=== PATIENT | male | born 1965 | race Caucasian/White ===

== ENCOUNTER 2024-03-02 15:21 | Emergency (ER) | payer OTHER, SELFPAY ==
--- NOTE | ~2024-03-02 | XR_ITS ---
EXAMINATION: XR ELBOW, RIGHT CLINICAL INFORMATION: fall, pain. COMPARISON: None available. TECHNIQUE: AP, lateral, and oblique views of the right elbow. FINDINGS: No fracture, dislocation, or suspicious bone lesion. Normal alignment of the elbow. Joint spaces preserved. Epicondyles appear normal. Radial head is intact. Olecranon is intact. There is no joint effusion. There is diffuse soft tissue swelling overlying the olecranon, likely secondary to trauma. No radiopaque foreign bodies. XR/XR elbow RT 2V IMPRESSION: 1. No fracture, joint effusion, or dislocation. 2. Soft tissue swelling overlying the olecranon, likely result of direct trauma. Electronically signed by: Myron Arreguin MD 03/02/2024 04:20 PM [facility]
--- NOTE | ~2024-03-02 | CT_ITS ---
EXAMINATION: CT HEAD WITHOUT CONTRAST CLINICAL INFORMATION: Fall, loss of consciousness TECHNIQUE: Contiguous axial imaging was performed from the skull base to vertex without intravenous administration of contrast. All CT exams at this location are performed using dose optimization techniques as appropriate to a performed exam including at least one of the following: * Automated exposure control * Adjustment of the mA and/or kV according to patient size (this includes techniques or standardized protocols for targeted exams where dose is matched to indication / reason for exam; i/e/ extremities or head) * Use of iterative reconstructive technique DLP: 654 mGy-cm COMPARISON: None. FINDINGS: There is no evidence of acute intracranial hemorrhage, acute large vessel infarct, midline shift or mass effect. The paul-white differentiation is preserved. The ventricles and sulci are within normal limits in size and configuration. There is no evidence of hydrocephalus. There are no extraaxial collections. Osseous structures are intact. Paranasal sinuses and mastoid air cells are well aerated. CT/CT head/brain wo IV con IMPRESSION: Unremarkable non-contrast CT of the brain. Electronically signed by: Kyle Rodgers MD 03/02/2024 07:19 PM EST
--- NOTE | ~2024-03-02 | XR_ITS ---
EXAMINATION: XR CERVICAL SPINE CLINICAL INFORMATION: Fall, neck pain COMPARISON: None available. TECHNIQUE: 3 views of the cervical spine were obtained. FINDINGS: There are no prevertebral soft tissue abnormalities demonstrated. No compression fractures or subluxations are identified. Alignment is maintained at the atlanto-axial articulation. Degenerative changes with disc space narrowing and osteophyte formation is seen in the C3-C6. Posterior facet joint arthropathy is seen at C5/6. The prevertebral soft tissues are normal. XR/XR cervical spine 3V IMPRESSION: No acute process. Degenerative changes as described above. Electronically signed by: Kyle Rodgers MD 03/02/2024 07:16 PM EST
[2024-03-02 15:55] VITALS: BP 123/76; PULSE 80; RESP 18; TEMP 36.5; O2SAT 95; BMI 21.8
[2024-03-02 16:00] VITALS: BP 128/82; PULSE 87; RESP 18; TEMP 36.8; O2SAT 99
--- NOTE | 2024-03-02 17:21 | ED_ITS ---
HPI - Fall General Chief Complaint: Fall Stated Complaint: fell 02/28 right elbow inj Time Seen by Provider: 03/02/24 16:51 Source: patient Mode of arrival: ambulatory Limitations: no limitations History of Present Illness ED Provider: Dr. Neda Torres HPI Narrative: Patient comes to the emergency room complaining of right elbow pain. Patient states that 2 days ago he slipped on ice and landed on his elbow. Patient stated that also he believes that he lost consciousness. Patient states that he takes Coumadin. Patient denies any headache or neck pain at this time. Patient states that what hurts him the most is the right elbow. According to the patient, he went to urgent care today, they asked him to come to the emergency room for further evaluation. Related Data Previous Rx's ?Medication ?Instructions ?Recorded cephalexin 500 mg capsule 500 mg PO BID #14 caps 03/02/24 doxycycline hyclate 100 mg capsule 100 mg PO BID #14 caps 03/02/24 tramadol 50 mg tablet 50 mg PO BID PRN pain #7 tabs 03/02/24 Allergies Allergy/AdvReac Type Severity Reaction Status Date / Time fish derived [fish] AdvReac Redness of Verified 03/02/24 15:57 Skin ibuprofen [From Motrin] AdvReac Rash Verified 03/02/24 15:57 Review of Systems 2 Review of Systems: Constitutional : No Weight loss, No Fever, No Chills, No Night Sweats, No Fatigue, No Malaise ENT/Mouth : No Hearing loss, No Ear Pain, No Nasal Congestion, No Sinus Pain, No Hoarseness, No sore throat, No Rhinorrhea, No Swallowing Difficulty Eyes: No Eye Pain, No Swelling, No Redness, No Foreign Body, No Discharge, No Vision Changes Cardiovascular : No Chest Pain, No SOB, No Dyspnea on Exertion, No Orthopnea, No Edema, No Palpitations Respiratory : No Cough, No Sputum, No Wheezing, No Smoke Exposure, No Dyspnea Gastrointestinal : No Nausea, No Vomiting, No Diarrhea, No Constipation, No abdominal Pain, No Hematochezia, No Melena Genitourinary : no irregular bleeding, No Dysuria, No Urinary Frequency, No Hematuria, No Urinary Incontinence, No Urgency, No Flank Pain, No Urinary Flow Changes, No Hesitancy Musculoskeletal : Complaining of right elbow pain, No Myalgias, No Joint Swelling Skin : No Skin Lesions, No rash Neuro : No Weakness, No Numbness, No Paresthesias, complaining loss of consciousness after off,No Dizziness, No Headache Psych : No Anxiety/Panic, No Depression, No SI/HI/AH/VH, No Social Issues, Heme/Lymph: No Bruising, No Bleeding,No Lymphadenopathy Endocrine : No Polyuria, No Polydipsia, No Temperature Intolerance [facility] Past Medical History Medical History (Updated 03/02/24 @ 23:31 by Neda Torres MD) Pulmonary emboli Social History Social History Unable to assess alcohol history related to: Unknown Use of substances other than those prescribed or required for medical reasons: Unknown Advance Directives: No Advance Directives Information Provided: Yes Physical Exam 2 Vital Signs: Vital Signs: Last Vital Signs Temp 98.2 F 03/02/24 16:00 Pulse 64 03/02/24 20:00 Resp 18 03/02/24 20:00 BP 132/89 03/02/24 20:00 Pulse Ox 99 03/02/24 16:00 O2 Del Method Room Air 03/02/24 16:00 BMI result Body Mass Index 21.8 Const: Other: Appearance: Alert. Oriented X3. seems uncomfortable Eyes: Pupils equal, round and reactive to light. ENT: Pharynx normal. Neck: Normal inspection. Neck supple. No lymph nodes noted. No crepitus CVS: Normal heart rate and rhythm. Pulses normal. Normal S1 and S2 Respiratory: No respiratory distress. Breath sounds normal. No Wheezing. No rales Abdomen: Soft and nontender. No rigidity. No distention. Skin: Skin warm and dry. Normal skin color. Normal skin turgor. Extremities: No lower extremity edema. No Lacerations. No Rash. Elbow looks swollen, erythematous, warm to touch, very painful Neuro: Oriented X 3. No motor deficit. No sensory deficit. Moving all extremities. No slurred speech. CN 2 through 12 grossly intact Psych: calm, cooperative, normal affect Medications Administered Discontinued Medications Generic Name Dose Route Start Last Admin Trade Name Freq PRN Reason Stop Dose Admin Vancomycin HCl 2,000 mg in 500 mls @ 250 mls/hr 03/02/24 20:14 03/02/24 23:11 Vancomycin/Ns IV 03/02/24 22:13 Infused ONCE ONE Infusion Piperacillin Sod/Tazobactam 50 mls @ 100 mls/hr 12/26/24 20:14 03/02/24 21:06 Sod 3.375 gm/ Sodium Chloride IV 03/02/24 20:43 Infused ONCE ONE Infusion Lidocaine HCl 20 ml 03/02/24 17:07 03/02/24 18:45 Lidocaine Hcl 2 % 20 Ml Vial INFILTRATI 03/02/24 17:08 20 ml ONCE ONE Administration Morphine Sulfate 4 mg 03/02/24 17:09 03/02/24 18:05 Morphine Sulfate 4 Mg/Ml Cartridge IVPUSH 03/02/24 17:10 4 mg ONCE ONE Administration Protocol Morphine Sulfate 2 mg 03/02/24 18:48 03/02/24 19:28 Morphine Sulfate 2 Mg/Ml Cartridge IVPUSH 03/02/24 18:49 2 mg ONCE ONE Administration Protocol Procedures Joint Aspiration/Injection Joint Asp./Inject. 1: Time Out Performed: Yes Side of body: right Joint Aspirated: elbow Ultrasound Guidance: No Skin Prep: Povidone-Iodine1% Local Anesthetic: lidocaine 2% Amount of anesthesia used (mL): 7 Needle Size Used: 18G Fluid Obtained: clear ( yellow) Patient Tolerated Procedure: well and no complications Complications: none Medical Decision Making Medical Decision Making MDM Narrative: my interpretation of x-ray of the right elbow. No bony fracture. Per Radiology report, there is no effusion. However, patient's seems to have some bogginess. Patient states that earlier today when he went to urgent Care, he was draining pus from the eschar side on the right elbow. Discussed with the patient that there is a fair probability that there is fluid in the elbow joint and is starting to become infected. The skin is definitely infected. Seems to be streaking upwards. Patient agreeable to arthrocentesis. Arthrocentesis was performed, 16 mL of clear yellow fluid was obtained - labs of the synovial fluid: white blood cell count 2000 - while we received the lab results, patient prophylactically received vancomycin and Zosyn. - Patient received 2 doses of morphine. I discussed the patient with Dr. Tinajero from the medicine team. Patient is able to flex and extend his arm, hurts but he is able to do so. After the IV antibiotics, patient states that he His arm was still hurting but he does not want to be admitted. Patient was sent home with a prescription for p.o. antibiotics and pain medication. Differential Diagnosis Differential Diagnoses: The differential diagnosis associated with the presentation includes ( Septic joint, traumatic effusion, hemarthrosis) Admission/Observation Consideration of admission/observation: Escalation of care including admission/observation considered ( admission was considered and of with) Lab Data MDM Lab Attestation statement: I reviewed the patient's lab results. 03/02/24 17:35 03/02/24 17:35 Labs: Lab Results 03/02/24 03/02/24 Range/Units 17:35 18:45 WBC 12.3 H (4.8-10.8) X10*3/uL RBC 5.07 (4.60-5.80) X10*6/uL Hgb 14.7 (14.0-18.0) g/dl Hct 44.6 (42.0-52.0) % MCV 88.0 (80.0-98.0) fL MCH 29.0 (27.0-33.0) pg MCHC 33.0 (31.0-36.0) g/dl RDW 14.0 (11.0-16.0) % Plt Count 283 (160-400) X10*3/uL MPV 9.2 L (9.4-12.4) fL Immature Gran % (Auto) 0.6 H (0.0-0.4) % Neut % (Auto) 66.3 (45-73) % Lymph % (Auto) 22.5 (20-40) % [place] % (Auto) 8.4 (2-11) % Eos % (Auto) 1.7 (0-4) % Baso % (Auto) 0.5 (0-2) % Lymph # (Auto) 2.8 (1.2-4.9) X10*3/uL [place] # (Auto) 1.0 (0.1-1.2) X10*3/uL Eos # (Auto) 0.2 (0.0-0.4) X10*3/uL Baso # (Auto) 0.1 (0.0-0.2) X10*3/uL Abs Immat Gran (auto) 0.07 H (0.00-0.03) X10*3/uL Absolute Neuts (auto) 8.2 (2.0-8.3) x10*3/uL Absolute Nucleated RBC 0.000 (0.0-0.012) X10*3/uL Nucleated RBC % (auto) 0.0 (0.0-0.2) /100WBC ESR 16 H (0-15) MM/HR Sodium 137 (135-145) mmol/L Potassium 4.2 (3.3-5.1) mmol/L Chloride 105 (96-108) mmol/L Carbon Dioxide 28 (22-29) mmol/L Anion Gap 8 L (12-20) BUN 9 (9-16) mg/dL Creatinine 0.77 (0.5-1.4) mg/dL Estim Creat Clear Calc 116.5 Estimated GFR > 60 Random Glucose 82 (60-115) mg/dL Calcium 9.3 (8.4-10.2) mg/dL Total Bilirubin 0.4 (0.0-1.0) mg/dL Direct Bilirubin 0.1 (0.0-0.5) mg/dL AST 42 H (5-37) U/L ALT 18 (0-40) U/L Alkaline Phosphatase 87 (39-117) U/L C-Reactive Protein 6.90 H (< or = 0.50) mg/dL Total Protein 7.5 (6.5-8.0) g/dL Albumin 4.0 (3.5-5.0) g/dL Synovial Source right elbow Synovial WBC 2.055 X10*3/uL Synovial RBC < 0.002 X10*6/uL Synovial Neutrophils 90 % Synovial Lymphocytes 6 % Synovial Monocytes 4 % Independent Interpretation I performed an independent interpretation of an: CT Scan Radiology Impression Discussion of test interpretation with radiology: I have reviewed the radiologist's reading. Radiologist Impression: FINDINGS: There is no evidence of acute intracranial hemorrhage, acute large vessel infarct, midline shift or mass effect. The paul-white differentiation is preserved. The ventricles and sulci are within normal limits in size and configuration. There is no evidence of hydrocephalus. There are no extraaxial collections. Osseous structures are intact. Paranasal sinuses and mastoid air cells are well aerated. CT/CT head/brain wo IV con IMPRESSION: Critical Care Time Critical Care Time Critical Care Time: Yes Total Critical Care Time: 60 Attestation: I have personally provided critical care time. Time includes review of lab data, radiology results, discussion with consultants, and monitoring for potential decompensation. Intervention performed as documented. Discharge Plan Discharge Clinical Impression: Cellulitis, Joint effusion Patient Disposition: Home, Self-Care Instructions: Cellulitis (ED), Joint Aspiration (DC) Additional Instructions: Please follow-up with your primary care physician tomorrow. If you have any worsening or new symptoms, please return to the emergency room or call 911 Prescriptions: New cephalexin 500 mg capsule 500 mg PO BID Qty: 14 0RF doxycycline hyclate 100 mg capsule 100 mg PO BID Qty: 14 0RF tramadol 50 mg tablet 50 mg PO BID PRN (Reason: pain) Qty: 7 0RF Print Language: Sami
[2024-03-02 17:41] LABS: MANUAL DIFF FLAG NO
[2024-03-02 17:55] LABS: Basophils Absolute Auto 0.1 X10*3/uL (0.0-0.2); Basophils Percent Auto 0.5 % (0-2); Eosinophils Absolute Auto 0.2 X10*3/uL (0.0-0.4); Eosinophils Percent Auto 1.7 % (0-4); Hematocrit 44.6 % (42.0-52.0); Hemoglobin 14.7 g/dl (14.0-18.0); Imm Gran Abs Auto 0.07 X10*3/uL (0.00-0.03); Imm Gran Pct Auto 0.6 % (0.0-0.4); Lymphocytes Absolute Auto 2.8 X10*3/uL (1.2-4.9); Lymphocytes Percent Auto 22.5 % (20-40); Mean Platelet Volume 9.2 fL (9.4-12.4); Monocytes Percent Auto 8.4 % (2-11); Neutrophils Absolute Auto 8.2 x10*3/uL (2.0-8.3); Neutrophils Percent Auto 66.3 % (45-73); Platelet Count 283 X10*3/uL (160-400); Red Blood Count 5.07 X10*6/uL (4.60-5.80); White Blood Count 12.3 X10*3/uL (4.8-10.8)
[2024-03-02 17:56] LABS: Alanine Aminotransferase 18 U/L (0-40); Alkaline Phosphatase 87 U/L (39-117); Anion Gap 8 (12-20); Aspartate Amino Transferase 42 U/L (5-37); Bilirubin Direct 0.1 mg/dL (0.0-0.5); Bilirubin Total 0.4 mg/dL (0.0-1.0); Blood Urea Nitrogen 9 mg/dL (9-16); Calcium 9.3 mg/dL (8.4-10.2); Carbon Dioxide 28 mmol/L (22-29); Chloride 105 mmol/L (96-108); Creatinine Clr Calc Pharmacy 116.5; Estimated Glomerular Filt Rate > 60; Glucose Random 82 mg/dL (60-115); Potassium 4.2 mmol/L (3.3-5.1); Sodium 137 mmol/L (135-145); Total Protein 7.5 g/dL (6.5-8.0)
[2024-03-02] MEDS: Morphine Sulfate 4 MG/ML CARTRIDGE IVPUSH (18:05)
[2024-03-02] MEDS: Lidocaine HCl 2 % 20 ML VIAL INFILTRATI (18:45)
[2024-03-02 18:54] LABS: Erythrocyte Sedimentation Rate 16 MM/HR (0-15)
[2024-03-02 19:24] LABS: MN% 6.3 %; PMN% 93.7 %; WBC Synovial Fluid 2.055 X10*3/uL
[2024-03-02 19:28] VITALS: RESP 20
[2024-03-02] MEDS: Morphine Sulfate 2 MG/ML CARTRIDGE IVPUSH (19:28)
[2024-03-02 20:00] VITALS: BP 132/89; PULSE 64; RESP 18
[2024-03-02] MEDS: Piperacillin Sodium/Tazobactam 3.375 GM in 0.9 % Sodium Chloride 50 ML IV (20:40)
[2024-03-02 20:50] LABS: RBC Synovial Fluid < 0.002 X10*6/uL
[2024-03-02 20:54] LABS: Lymphocytes Synovial Fluid 6 %; Monocytes Synovial Fluid 4 %; Neutrophils Synovial Fluid 90 %
[2024-03-02] MEDS: vancomycin/NS 2,000 MG/500 ML PLAST..BAG 250 MG IV (21:08)
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
[2024-03-02 23:32] LABS: BF Shift QC OK YES
[2024-03-02 23:41] VITALS: BP 00/00; PULSE 0; RESP 0; TEMP -17.7; TEMP 0
[2024-03-03 07:51] LABS: Glucose Synovial Fluid 49
== END 2024-03-02 23:42 | disposition home or self-care (01) ==
PROVIDERS: Emergency Provider Emergency Medicine
DX: M25.421 Effusion, right elbow (principal); L03.113 Cellulitis of right upper limb; M25.521 Pain in right elbow; Z86.711 Personal history of pulmonary embolism
CPT/HCPCS: 20605; 36415; 70450; 72040; 73070; 80048; 80076; 82945; 84157; 85025; 85652; 86140; 87070; 87073; 87205; 89051; 89060; 96365; 96366; 96367; 96375; 96376; 99284; J2003; J2270; J2543; J3370

== ENCOUNTER → 2024-03-02 16:00 | Outpatient (BNV) | payer OTHER, SELFPAY | PROVIDERS: Emergency Provider Emergency Medicine; Visit Provider Radiology Diagnostic Radiology | DX: M25.521 Pain in right elbow (principal) | CPT/HCPCS: 73070 ==